=== PATIENT | male | born 1965 | race Caucasian/White ===

== ENCOUNTER 2018-12-12 10:38 | Inpatient (IN) ==
--- NOTE | 2018-12-12 11:12 | Emergency Department Note ---
Disposition Clinical Impression: ESRD (end stage renal disease) Anemia Qualifiers: Anemia type: unspecified type Qualified Code(s): D64.9 - Anemia, unspecified Disposition: Admitted As Inpatient Condition: Fair Referrals: Antonio Soriano DO [Primary Care Provider] - Forms: ED Satisfaction Letter, Work/School Release Time of Disposition: 12:01 General Adult HPI - General Chief complaint: ED General Medical Stated complaint: "needs dialysis" Time Seen by Provider: 12/12/18 10:40 - History of Present Illness Pain Scale: 0 - Related Data Allergies Allergy/AdvReac Type Severity Reaction Status Date / Time No Known Allergies Allergy Verified 12/11/18 15:20 Past Medical History - Past Medical History Medical history: Reports: cancer, renal disease Psychiatric history: Reports: no psych history - Social History Smoking Status: Never smoker Smokeless Tobacco Status: No Alcohol use: Reports: none Drug use: Reports: none Physical Exam - General General appearance: alert Course Vital Signs Temperature 98.7 F 12/12/18 10:42 Pulse Rate 87 12/12/18 10:42 Respiratory Rate 18 12/12/18 10:42 Blood Pressure 142/89 12/12/18 10:42 O2 Sat by Pulse Oximetry 99 12/12/18 10:42 Temperature 98.7 F 12/12/18 10:48 Pulse Rate 87 12/12/18 10:48 Respiratory Rate 18 12/12/18 10:48 Blood Pressure 142/89 12/12/18 10:48 O2 Sat by Pulse Oximetry 99 12/12/18 10:48 Oxygen Delivery Oxygen Delivery Room Air Medical Decision Making - Lab Data Result diagrams: 12/12/18 11:05 12/12/18 11:05 Lab Results 12/12/18 12/12/18 12/12/18 Range/Units 11:05 11:05 11:05 WBC 6.4 (4.3-11.1) K/mcL RBC 2.88 L (4.19-5.50) M/mcL Hgb 9.0 L (12.9-16.9) g/dL Hct 26.9 L (37.5-50.1) % MCV 93.4 (83.0-100.0) fL MCH 31.3 (28.0-33.3) pg MCHC 33.5 (31.6-35.5) g/dL RDW 12.3 (11.5-14.5) % Plt Count 198 (140-400) K/mcL MPV 8.9 L (9.4-12.4) fL Immature Gran % 0.3 (0-4) % Seg Neutrophils % 62.7 % Lymphocytes % 23.3 % Monocytes % 10.1 % Eosinophils % 2.8 % Basophils % 0.8 % Neutrophils # 4.0 (1.6-8.9) K/mcL Lymphocytes # 1.5 (0.6-4.6) K/mcL Monocytes # 0.6 (0.0-1.3) K/mcL Eosinophils # 0.2 (0.0-0.6) K/mcL Basophils # 0.1 (0.0-0.2) K/mcL PT 12.5 H (9.4-12.1) Seconds INR 1.1 Sodium (136-145) mEq/L Potassium (3.5-5.1) mEq/L Chloride (98-107) mEq/L Carbon Dioxide (23-29) mEq/L BUN (6-20) mg/dL Creatinine (0.70-1.30) mg/dL Est GFR ( Amer) (> 60) Est GFR (Non-Af Amer) (> 60) BUN/Creatinine Ratio (6-26) Glucose (70-105) mg/dL Calculated Osmolality (280-300) Calcium (8.6-10.3) mg/dL Urine Color Yellow (Yellow) Urine Clarity Clear (Clear) Urine pH 6.5 (5.0-8.0) pH Units Ur Specific [place] 1.019 (1.010-1.025) Urine Protein 100 H (Neg-Trace) mg/dL Urine Glucose (UA) Normal (Normal) mg/dL Urine Ketones Negative (Negative) mg/dL Urine Blood Moderate H (Negative) Urine Nitrite Negative (Negative) Urine Bilirubin Negative (Negative) Urine Urobilinogen Normal (Normal) mg/dL Ur Leukocyte Esterase Negative (Negative) 12/12/18 Range/Units 11:05 WBC (4.3-11.1) K/mcL RBC (4.19-5.50) M/mcL Hgb (12.9-16.9) g/dL Hct (37.5-50.1) % MCV (83.0-100.0) fL MCH (28.0-33.3) pg MCHC (31.6-35.5) g/dL RDW (11.5-14.5) % Plt Count (140-400) K/mcL MPV (9.4-12.4) fL Immature Gran % (0-4) % Seg Neutrophils % % Lymphocytes % % Monocytes % % Eosinophils % % Basophils % % Neutrophils # (1.6-8.9) K/mcL Lymphocytes # (0.6-4.6) K/mcL Monocytes # (0.0-1.3) K/mcL Eosinophils # (0.0-0.6) K/mcL Basophils # (0.0-0.2) K/mcL PT (9.4-12.1) Seconds INR Sodium 139 (136-145) mEq/L Potassium 4.5 (3.5-5.1) mEq/L Chloride 104 (98-107) mEq/L Carbon Dioxide 24 (23-29) mEq/L BUN 50 H (6-20) mg/dL Creatinine 10.06 H (0.70-1.30) mg/dL Est GFR ( Amer) 7 L (> 60) Est GFR (Non-Af Amer) 5 L (> 60) BUN/Creatinine Ratio 5 L (6-26) Glucose 90 (70-105) mg/dL Calculated Osmolality 301 H (280-300) Calcium 10.4 H (8.6-10.3) mg/dL Urine Color (Yellow) Urine Clarity (Clear) Urine pH (5.0-8.0) pH Units Ur Specific [place] (1.010-1.025) Urine Protein (Neg-Trace) mg/dL Urine Glucose (UA) (Normal) mg/dL Urine Ketones (Negative) mg/dL Urine Blood (Negative) Urine Nitrite (Negative) Urine Bilirubin (Negative) Urine Urobilinogen (Normal) mg/dL Ur Leukocyte Esterase (Negative) Attestation Statement - Attestation Attestation: Tristian Flores D.O., examined this patient and my medical decision-making was reviewed with the Resident Physician. I agree with the documented findings, disposition and treatment plan as described except to the extent set forth below. 53-year-old male with a history of multiple myeloma currently not on treatment preferring natural remedies at this time after previous treatment at [facility] who presents for dialysis. The patient has known renal failure but has never initiated dialysis. He was seen here yesterday and went home. He presents again today. He reports nausea at home. No vomiting or abdominal pain. No fevers. He does still make urine but less than what he used to. No other complaints. General: Alert, no acute distress HENT: Normocephalic, Atraumatic Neck: No JVD Cardiovascular: Regular rate and rhythm. No appreciable murmurs Respiratory: Lungs CTAB. No wheezing/rhonchi Abdominal: Soft, non tender. No peritoneal findings Extremities: No peripheral edema Neuro: Alert, Mentating appropriately, No focal deficits Skin: Warm, Dry Plan: EKG, basic labs, discussion with nephrology and interventional radiology with anticipated admission. Sinus rhythm with a rate of 80. Normal axis. Normal intervals. Normal R wave progression. No gross ST elevations/depressions. No acute ischemic findings. Labs with creatinine of 10. Normal potassium Case was discussed with nephrology and IR. Admit to the hospitalist.
--- NOTE | 2018-12-12 11:20 | Emergency Department Note ---
Disposition Clinical Impression: Renal failure Qualifiers: Renal failure chronicity: acute Acute renal failure type: unspecified Qualified Code(s): N17.9 - Acute kidney failure, unspecified Disposition: Admitted As Inpatient Condition: Good Referrals: Antonio Soriano DO [Primary Care Provider] - Forms: ED Satisfaction Letter, Work/School Release Time of Disposition: 12:01 General Adult HPI - General Chief complaint: ED General Medical Stated complaint: "needs dialysis" Time Seen by Provider: 12/12/18 10:40 Source: patient, family Mode of arrival: ambulatory Limitations: no limitations Nursing Notes Reviewed: Yes Vital Signs Reviewed: Yes - History of Present Illness HPI Narrative: 53-year-old male with significant past medical history of multiple myeloma leading to stage V kidney disease presenting to the emergency department with chief complaint of needing dialysis. Patient was seen here yesterday after being sent by his junior systems engineer Dr. Almanzar due to symptoms concerning for uremia and end-stage renal disease. At that time patient had laboratory analysis completed that showed a creatinine at 10 but otherwise electrolytes were within normal limits. At that time patient refused admission and decided to leave and follow-up as an outpatient with his junior systems engineer. Today patient continued to have chills, nausea and confusion and came in for admission for dialysis and placement of the catheter. Pain Scale: 0 - Related Data Allergies Allergy/AdvReac Type Severity Reaction Status Date / Time No Known Allergies Allergy Verified 12/11/18 15:20 All systems ED: reviewed and negative except as stated. Constitutional: Reports: chills. Denies: fever Eyes: Reports: as per HPI ENT ED: Reports: as per HPI Cardiovascular: Denies: chest pain Respiratory: Denies: dyspnea Gastrointestinal: Reports: nausea Genitourinary: Reports: as per HPI Musculoskeletal: Reports: as per HPI Integumentary: Reports: as per HPI Neurological: Reports: confusion Psychiatric: Reports: as per HPI Endocrine: Reports: as per HPI Hematological/Lymphatic: Reports: as per HPI Allergic/Immunologic: Reports: as per HPI Past Medical History - Past Medical History Attestation: Yes The following information was validated with the patient. Medical history: Reports: cancer, renal disease Psychiatric history: Reports: no psych history - Social History Smoking Status: Never smoker Smokeless Tobacco Status: No Alcohol use: Reports: none Drug use: Reports: none Physical Exam - General Limitations: no limitations General appearance: alert, in no apparent distress - Head Head exam: atraumatic, normocephalic, normal inspection - Eye Eye exam: Absent: scleral icterus - ENT ENT exam: mucous membranes moist - Neck Neck exam: Present: full ROM - Chest Chest inspection: Present: symmetric chest wall rise - Respiratory Respiratory exam: Present: normal lung sounds bilaterally. Absent: respiratory distress, wheezes - Cardiovascular Cardiovascular exam: Present: regular rate, normal rhythm, normal heart sounds - Abdominal Exam Abdominal exam: Present: soft, Non-Tender. Absent: distention, guarding, rebound - Extremities Exam Extremities exam: Present: full ROM - Neurological Exam Neurological exam: Present: alert - Psychiatric Psychiatric exam: Present: flat affect - Skin Skin exam: Present: warm, intact Course Course Narrative: 53-year-old male presenting needing dialysis. In the room he is alert and hemodynamically stable. Was seen yesterday but decided to leave and follow-up as an outpatient. Laboratory analysis yesterday showed elevated creatinine but electrolytes were within normal limits. I spoke with the junior systems engineer on-call Dr. Almanzar who is aware of the patient. We will obtain basic laboratory analysis along with a PT/INR for permacath placement for interventional radiology. I spoke with interventional radiology who agrees to place the patient on their juan luis edule for today. We will obtain laboratory analysis and plan to admit the patient to hospitalist. Patient and at bedside agree with this plan. - Reevaluation(s) Reevaluation #1: Patient's laboratory workup mostly unchanged from yesterday. At this time we will plan to admit the patient for further treatment of his end-stage renal disease. Patient remains alert and hemodynamically stable. Hospitalist agrees to accept the patient at this time. Vital Signs Temperature 98.7 F 12/12/18 10:42 Pulse Rate 87 12/12/18 10:42 Respiratory Rate 18 12/12/18 10:42 Blood Pressure 142/89 12/12/18 10:42 O2 Sat by Pulse Oximetry 99 12/12/18 10:42 Temperature 98.7 F 12/12/18 10:48 Pulse Rate 87 12/12/18 10:48 Respiratory Rate 18 12/12/18 10:48 Blood Pressure 142/89 12/12/18 10:48 O2 Sat by Pulse Oximetry 99 12/12/18 10:48 Oxygen Delivery Oxygen Delivery Room Air Medical Decision Making - Lab Data Result diagrams: 12/12/18 11:05 12/12/18 11:05 Lab Results 12/12/18 12/12/18 12/12/18 Range/Units 11:05 11:05 11:05 WBC 6.4 (4.3-11.1) K/mcL RBC 2.88 L (4.19-5.50) M/mcL Hgb 9.0 L (12.9-16.9) g/dL Hct 26.9 L (37.5-50.1) % MCV 93.4 (83.0-100.0) fL MCH 31.3 (28.0-33.3) pg MCHC 33.5 (31.6-35.5) g/dL RDW 12.3 (11.5-14.5) % Plt Count 198 (140-400) K/mcL MPV 8.9 L (9.4-12.4) fL Immature Gran % 0.3 (0-4) % Seg Neutrophils % 62.7 % Lymphocytes % 23.3 % Monocytes % 10.1 % Eosinophils % 2.8 % Basophils % 0.8 % Neutrophils # 4.0 (1.6-8.9) K/mcL Lymphocytes # 1.5 (0.6-4.6) K/mcL Monocytes # 0.6 (0.0-1.3) K/mcL Eosinophils # 0.2 (0.0-0.6) K/mcL Basophils # 0.1 (0.0-0.2) K/mcL PT 12.5 H (9.4-12.1) Seconds INR 1.1 Sodium (136-145) mEq/L Potassium (3.5-5.1) mEq/L Chloride (98-107) mEq/L Carbon Dioxide (23-29) mEq/L BUN (6-20) mg/dL Creatinine (0.70-1.30) mg/dL Est GFR ( Amer) (> 60) Est GFR (Non-Af Amer) (> 60) BUN/Creatinine Ratio (6-26) Glucose (70-105) mg/dL Calculated Osmolality (280-300) Calcium (8.6-10.3) mg/dL Urine Color Yellow (Yellow) Urine Clarity Clear (Clear) Urine pH 6.5 (5.0-8.0) pH Units Ur Specific [place] 1.019 (1.010-1.025) Urine Protein 100 H (Neg-Trace) mg/dL Urine Glucose (UA) Normal (Normal) mg/dL Urine Ketones Negative (Negative) mg/dL Urine Blood Moderate H (Negative) Urine Nitrite Negative (Negative) Urine Bilirubin Negative (Negative) Urine Urobilinogen Normal (Normal) mg/dL Ur Leukocyte Esterase Negative (Negative) 12/12/18 Range/Units 11:05 WBC (4.3-11.1) K/mcL RBC (4.19-5.50) M/mcL Hgb (12.9-16.9) g/dL Hct (37.5-50.1) % MCV (83.0-100.0) fL MCH (28.0-33.3) pg MCHC (31.6-35.5) g/dL RDW (11.5-14.5) % Plt Count (140-400) K/mcL MPV (9.4-12.4) fL Immature Gran % (0-4) % Seg Neutrophils % % Lymphocytes % % Monocytes % % Eosinophils % % Basophils % % Neutrophils # (1.6-8.9) K/mcL Lymphocytes # (0.6-4.6) K/mcL Monocytes # (0.0-1.3) K/mcL Eosinophils # (0.0-0.6) K/mcL Basophils # (0.0-0.2) K/mcL PT (9.4-12.1) Seconds INR Sodium 139 (136-145) mEq/L Potassium 4.5 (3.5-5.1) mEq/L Chloride 104 (98-107) mEq/L Carbon Dioxide 24 (23-29) mEq/L BUN 50 H (6-20) mg/dL Creatinine 10.06 H (0.70-1.30) mg/dL Est GFR ( Amer) 7 L (> 60) Est GFR (Non-Af Amer) 5 L (> 60) BUN/Creatinine Ratio 5 L (6-26) Glucose 90 (70-105) mg/dL Calculated Osmolality 301 H (280-300) Calcium 10.4 H (8.6-10.3) mg/dL Urine Color (Yellow) Urine Clarity (Clear) Urine pH (5.0-8.0) pH Units Ur Specific [place] (1.010-1.025) Urine Protein (Neg-Trace) mg/dL Urine Glucose (UA) (Normal) mg/dL Urine Ketones (Negative) mg/dL Urine Blood (Negative) Urine Nitrite (Negative) Urine Bilirubin (Negative) Urine Urobilinogen (Normal) mg/dL Ur Leukocyte Esterase (Negative) Attestation Statement - Attestation Attestation: Tristian Flores D.O., examined this patient and my medical decision-making was reviewed with the Resident Physician. I agree with the documented findings, disposition and treatment plan as described except to the extent set forth below.
[2018-12-12 11:37] LABS: Basophils # 0.1 K/mcL (0.0-0.2); Basophils % 0.8 %; Eosinophils # 0.2 K/mcL (0.0-0.6); Eosinophils % 2.8 %; Hematocrit 26.9 % (37.5-50.1); Immature Granulocytes % 0.3 % (0-4); Lymphocytes # 1.5 K/mcL (0.6-4.6); Lymphocytes % 23.3 %; Mean Corpuscular HGB Conc 33.5 g/dL (31.6-35.5); Mean Corpuscular Hemoglobin 31.3 pg (28.0-33.3); Mean Corpuscular Volume 93.4 fL (83.0-100.0); Mean Platelet Volume 8.9 fL (9.4-12.4); Monocytes # 0.6 K/mcL (0.0-1.3); Monocytes % 10.1 %; Platelet Count 198 K/mcL (140-400); Red Blood Count 2.88 M/mcL (4.19-5.50); Red Cell Distribution Width 12.3 % (11.5-14.5); Segmented Neutrophils % 62.7 %; White Blood Count 6.4 K/mcL (4.3-11.1)
[2018-12-12 11:47] LABS: INR 1.1; Prothrombin Time 12.5 Seconds (9.4-12.1)
[2018-12-12 11:48] LABS: Bilirubin,Urine Negative (Negative); Blood,Urine Moderate (Negative); Clarity,Urine Clear (Clear); Color,Urine Yellow (Yellow); Glucose,Urine (UA) Normal (Normal); Ketones,Urine Negative (Negative); Leukocyte Esterase,Urine Negative (Negative); Nitrite,Urine Negative (Negative); PH,Urine 6.5 pH Units (5.0-8.0); Protein,Urine 100 mg/dL (Neg-Trace); Specific Gravity,Urine 1.019 (1.010-1.025); Urobilinogen,Urine Normal (Normal)
[2018-12-12 11:49] LABS: Calcium 10.4 mg/dL (8.6-10.3); Potassium 4.5 mEq/L (3.5-5.1)
[2018-12-12 12:26] LABS: Bacteria,Urine Few per hpf (None-Few); RBC,Urine 0-3 per hpf (0-3); WBC,Urine 0-3 per hpf (0-3)
[2018-12-12 12:46] LABS: Hepatitis B Surface Antibody < 3.10 mIU/mL
[2018-12-12 12:57] LABS: Hepatitis B Surface Antigen Nonreactive (Nonreactive)
[2018-12-12] MEDS ORDERED: Ondansetron 4 MG/2 ML VIAL IVP PRN (13:22)
[2018-12-12] MEDS ORDERED: Naloxone 0.4 MG/ML INJ IVP PRN (13:22)
[2018-12-12] MEDS ORDERED: Acetaminophen 325 MG TABLET PO PRN (13:22)
[2018-12-12] MEDS ORDERED: 0.9 % Sodium Chloride 250 ML IVC PRN (13:49)
[2018-12-12] MEDS ORDERED: *HR* Heparin 10,000 UNIT/10 ML VIAL IV PRN ×2 (13:49)
[2018-12-12] MEDS ORDERED: Heparin 1,000 UNITS/500 mL 500 ML ONE (14:00)
[2018-12-12] MEDS ORDERED: 0.9 % Sodium Chloride 1,000 ML PRIME SCH (14:00)
[2018-12-12] MEDS ORDERED: 0.9 % Sodium Chloride 1,000 ML ONE (14:05)
--- NOTE | 2018-12-12 14:21 | Internal Med History&Physical ---
Date of Encounter: 12/12/18 Time of Encounter: 11:45 Internal Medicine - H&P: HPI Admitted From: Emergency Dept Plans for Post Hospital Care: Home History of present illness: Mr. Gallardo is a 53 year old male with a history of multiple myeloma that was treated at [facility]. Per patient he received a 4 Sessions of Aphoresis, and 2 sessions of chemotherapy with the last session being October 08. Persisted and now he is now on homeopathic remedies-turmeric garlic vitamin D and vitamin B supplements which has helped with his symptoms. He stated that since his bone marrow biopsy in September he has been having persistent bone pain at the right hip. His Hanna [phone] and a doctor while he had workup at [facility] he was told that he has evidence of multiple myeloma and is hips. Patient denies any trauma or fall he also denies any history of prior chronic kidney disease however was noted upon laboratory workup to have elevated serum creatinine was sent to the ED yesterday and evaluated. Patient stated that he was unable to have the HD cath placed as such he went back home but presented today to be evaluated again at ED. His was at the bedside also stated that he is being of late quite easily fatigued, has problem with concentration. Patient complains of persistent nausea and malaise. He reports intermittent episodes of fevers and chills as stated that his urine output has been diminished. He stated that at [facility] who was told at this multiple myeloma may affect his kidneys function. At the ED laboratory workup was significant for hemoglobin of 9; creatinine of 10.06. Patient denies any history of melena hematochezia and also stated that he has never had a colonoscopy. Per ED physician patient is scheduled to have a permanent HD catheter placed which hopes of starting dialysis and at the nephrology team has been consulted Past Med Surg Social Fam HX - Past Medical History Medical history: cancer, renal disease Additional medical history: Multiple Myeloma Psychiatric history: no psych history - Past Surgical History Additional surgical history: R Shoulder. R Toe - Social History Smoking Status: Never smoker Smokeless Tobacco Status: No Alcohol use: none Drug use: none Internal Medicine - H&P: Meds Allergy/AdvReac Type Severity Reaction Status Date / Time No Known Allergies Allergy Verified 12/11/18 15:20 All Systems PM: A 10-system review of systems was performed and is negative for pertinent findings except as documented above in the HPI. Review of systems: GENERAL: reports fever, chills, fatigue generalized weakness and malaise DERMATOLOGIC: Denies itch, rash or lesions HEENT: Denies headache, blurriness, diplopia or decreased visual acuity, ear pain, tinnitus, rhinorrhea, sinus tenderness or sore throat RESPIRATORY: Denies SOB, cough, hemoptysis or pleuritic chest pain CARDIOVASCULAR: Denies chest pain, LE edema, palpitation or syncope GASTRO INTESTINAL: Denies cramps, nausea/vomiting, diarrhea or constipation, melena MUSCULOSKELATAL: Denies muscle pain/weakness, joint tenderness/pain or swelling PSYCH: Denies worsening anxiety, or depression NEURO: Denies vertigo, dizziness, or ataxia GENITURINARY: Denies dysuria, nocturia or urinary incontinence - Constitutional Vitals: Temp Pulse Resp BP Pulse Ox 98.7 F 87 19 146/94 99 12/12/18 10:48 12/12/18 10:48 12/12/18 13:42 12/12/18 13:42 12/12/18 10:48 Exam: GENERAL: NAD, A&O x3, pleasant and conversant at his bedside SKIN: [place] warm dry No skin lesions or rashes, non-jaundiced EYES: EOMI, PERRLA, no sclera icterus HENT: Head atraumatic, no facial asymmetry, frontal and maxillary sinus non- tender, normal hearing, oropharynx and mucosa moist and without any exudates NECK: No cervical lymphadenopathy, trachea midline, thyroid is palpable does not appear enlarged LUNGS: vesicular breath sounds, clear to auscultation, no wheeze, rhonchi, rales or crackles. Non labored respirations HEART: Normal rate and rhythm, no murmurs or rubs ABDOMEN: soft, non-tender, non-distended, bowel sounds x 4 normoactive EXTRMITIES: No LE asymmetry, No LE edema, pedal pulses 1+ and radial pulses 2 + and equal bilaterally NEURO: Speech and comprehension appears intact. PSYCH: Cooperative, non- anxious or irritable, mood seems depressed and affect is flat Internal Med - H&P Results - Labs CBC & Chem 7: 12/12/18 11:05 12/12/18 11:05 Labs: Short CBC 12/12/18 Range/Units 11:05 WBC 6.4 (4.3-11.1) K/mcL Hgb 9.0 L (12.9-16.9) g/dL Hct 26.9 L (37.5-50.1) % Plt Count 198 (140-400) K/mcL Neutrophils # 4.0 (1.6-8.9) K/mcL BMP 12/12/18 11:05 Sodium 139 Potassium 4.5 Chloride 104 Carbon Dioxide 24 BUN 50 H Creatinine 10.06 H Glucose 90 Calcium 10.4 H Urine 12/12/18 Range/Units 11:05 Urine Color Yellow (Yellow) Urine Clarity Clear (Clear) Urine pH 6.5 (5.0-8.0) pH Units Ur Specific [place] 1.019 (1.010-1.025) Urine Protein 100 H (Neg-Trace) mg/dL Urine Glucose (UA) Normal (Normal) mg/dL - Assessment and Plan (1) Renal failure Current Visit: Yes Status: Acute Assessment and plan: Surrounding etiology for his acute renal failure remains unclear although patient seems to attribute to his history of multiple myeloma, he presents with serum creatinine of 10.6 appears patient's serum creatinine has steadily been on the rise dating back to September 2018 last normal serum creatinine was 02/01/2017. Per ED physician IR have been consulted for placement of a permanent HD cath, the case has already been discussed with the cellulose insulation helper for possible emergent dialysis. With the exception of weakness malaise and nausea patient is otherwis e unremarkable he also does not appear to have an associated electrolyte abnormalities potassium is normal we will check phosphorus in the morning. place on a renal diet and monitor his electrolytes. Appreciate nephrology input Qualifiers: Renal failure chronicity: acute Acute renal failure type: unspecified Qualified Code(s): N17.9 - Acute kidney failure, unspecified (2) Anemia Current Visit: Yes Status: Acute Assessment and plan: Patient with normocytic type anemia he also denies ever undergoing colonoscopy he denies melena or hematochezia he is urinalysis was positive for blood however he denies gross hematuria last Normal hemoglobin was in September 2018 with hemoglobin of 13.1. This could also be in relation to his history of myeloma however would work up patient for other causes of anemia to rule out other treatable causes. Discussed with patient that if he has positive guaiac he might consider colonoscopy in the near future which he appears reluctant to will defer to his primary care physician Qualifiers: Anemia type: unspecified type Qualified Code(s): D64.9 - Anemia, unspecified (3) Microscopic hematuria Current Visit: Yes Status: Acute Assessment and plan: Patient denies gross hematuria UA was positive for moderate blood likely microsc opic will clinically correlate (4) History of multiple myeloma Current Visit: Yes Status: Acute Assessment and plan: Patient stated that he received 4 sessions of Aphoresis and 2 sessions of chemotherapy with the last sessions being October [id number] at [facility]. He stated he is now on homeopathic remedies which he attributes his relief too. He is complaining of right hip pain status post a bone marrow biopsy since September although he denies any swelling erythema and warmth physical exam with range of motion was unremarkable and did not elicit pain (5) Hypercalcemia Current Visit: Yes Status: Acute Assessment and plan: His calcium today is 10.4 no albumin on file to correlate his true calcium level, will check LFTs am he does admit to vitamin D supplementation but could not correlate the amount will also check a vitamin D level clinically correlate (6) DVT prophylaxis Current Visit: Yes Status: Acute Assessment and plan: Heparin subcutaneous - Time Spent With Patient Total time spent is greater than 50% in coordination of care (as documented) at patient's floor/unit and/or counseling patient:
[2018-12-12] MEDS ORDERED: *HR* Midazolam HCl 2 MG/2 ML VIAL IVP ONE (14:45)
[2018-12-12] MEDS ORDERED: CeFAZolin Premix DUPLEX 2,000 MG/50 ML BAG IVPB ONE (14:45)
[2018-12-12] MEDS ORDERED: *HR* FentaNYL (PF) 100 MCG/2 ML VIAL IVP ONE (14:45)
--- NOTE | 2018-12-12 14:46 | Pre-Sedation Evaluation ---
Pre-sedation evaluation - Pre-sedation checklist Date of procedure: 12/12/18 Procedure: permacath Recent Vitals: Last Vital Signs Temp 98.7 F 12/12/18 10:48 Pulse 87 12/12/18 10:48 Resp 19 12/12/18 13:42 BP 146/94 12/12/18 13:42 Pulse Ox 99 12/12/18 10:48 H&P (including ROS) documented in medical record: Yes Previous reaction to sedatives/anesthetics: No Dietary Status: No solid food in preceding 4 hrs and no liquid in preceding 2 hrs Dentition: No loose teeth or bridges Possible difficult airway: No ASA Classification *see protocol: CLASS III-Severe systemic disease Plan of Care: Pt appropriate candidate for procedure/moderate/conscious sedation, Risks/benefits of procedure/sedation discussed w/ patient/family
[2018-12-12] MEDS ORDERED: 0.9 % Sodium Chloride 500 ML ONE (14:49)
[2018-12-12] MEDS ORDERED: *HR* FentaNYL (PF) 100 MCG/2 ML VIAL ONE (14:55)
[2018-12-12] MEDS ORDERED: *HR* Midazolam HCl 2 MG/2 ML VIAL ONE (14:55)
--- NOTE | 2018-12-12 15:18 | IR Procedure Note ---
Date of procedure: 12/12/18 Consent Obtained: Verbal consent, Written consent Timeout: Correct patient and procedure verified, Correct site verified, Time out performed, Skin prep completed Local anesthetic: Lidocaine 1% Was there an assistant unit forester present: No Estimated blood loss (cc): 3 Complications: None; Tolerated procedure well Indications: Renal failure Procedure Performed: Tunneled HD catheter placement Site/Technique: Tunneled right IJ HD catheter placed in VIR Results/Findings (any specimens removed): Catheter in good position Post Procedure Treatment Plan: OK to use Specimen: none
[2018-12-12 17:21] LABS: Hematocrit 24.4 % (37.5-50.1); Hemoglobin 8.5 g/dL (12.9-16.9)
--- NOTE | 2018-12-12 20:35 | Nephrology Consult Note ---
<MeganKat boo Flash - Last Filed: 12/12/18 20:32> Date of Encounter: 12/12/18 Time of Encounter: 15:35 Assessment and Plan (1) Acute kidney injury superimposed on CKD Status: Acute Pt's GFR started to decline in September of this year was 27. GFR is 5 today. HD completed, Permcath placed today (12/12/18). Avoid nephrotoxins and renal dose. Consider Heme/onc consult. patient does not wish to go back to [facility] for treatment. Strict I/O Plan for HD tomorrow. (2) Anemia Status: Acute Hgb is 8.5, no obvious signs of bleeding. Iron profile already ordered for in the am. Qualifiers: Anemia type: unspecified type Qualified Code(s): D64.9 - Anemia, unspecified (3) History of multiple myeloma Status: Acute Consider Heme/onc consult. (4) Hypercalcemia Status: Acute 10.4, Consider Ionized Calcium in am. History of Present Illness - Reason for Consult Consult date: 12/12/18 Acute Kidney Injury, Chronic Kidney Disease Requesting physician: Kristie Mcdowell - Chief Complaint HD - History of Present Illness Mr. Gallardo is a 53 year old male who presented to ED under advisement of his rn telephonic Dr. Almanzar. His GFR has been checked several time in November of this year and has remained around 5. PMH:multiple myeloma and CKD. Patient was treated at [facility] with 4 sessions of Aphoresis and 2 sessions of chemo in September of this year. This is when the GFR started to decline and noted to be 27 at that point. The patient states that chemo did not sit well with him "physically and spiritually" so they pursued the holistic route of treatment in [place] in October, where he was told his multiple myeloma was "cured". He saw Dr. Almanzar in the office and she urged him to decide between PD and HD. He presented to ED yesterday, but when home when his HD cath could not be placed during the night. He returned this morning for HD. Admits to fever, chills, fatigue, shortness of breath, nausea. Denies emesis and diarrhea. Admits to feeling confused and has become easily distracted. IR placed permcath and HD was completed today. He lives at home with , Denies etoh, tobacco use, or illicit drug use. Past Med Surg Social Fam HX - Past Medical History Medical history: cancer, renal disease Additional medical history: Multiple Myeloma Psychiatric history: no psych history - Past Surgical History Additional surgical history: R Shoulder. R Toe - Social History Smoking Status: Never smoker Smokeless Tobacco Status: No Alcohol use: none Drug use: none Medications and Allergies No Known Home Drugs 12/12/18 [History] Allergy/AdvReac Type Severity Reaction Status Date / Time No Known Allergies Allergy Verified 12/12/18 22:28 Review of Systems All Systems review (narrative): The remainder of the systems are negative. Constitutional: chills, fatigue, fever(s) Cardiovascular: no chest pain, no dyspnea, no edema Respiratory: no hemoptysis Gastrointestinal: nausea, no diarrhea, no vomiting Genitourinary Male: no hematuria, no urinary frequency, no urinary hesitancy, no urinary urgency Exam - Vital Signs Vital signs: Initial Vital Signs Temp Pulse Resp BP Pulse Ox 98.7 F 87 18 142/89 99 12/12/18 10:42 12/12/18 10:42 12/12/18 10:42 12/12/18 10:42 12/12/18 10:42 Vital Signs - Last 8 Hours Temp Pulse Resp BP Pulse Ox 12/12/18 19:18 98.3 F 81 17 145/70 98 12/12/18 17:55 98.7 F 16 144/86 12/12/18 17:40 155/93 12/12/18 17:25 148/90 12/12/18 17:10 163/88 12/12/18 16:55 168/94 12/12/18 16:40 148/90 12/12/18 16:25 161/92 12/12/18 16:10 155/93 12/12/18 15:55 161/93 12/12/18 15:40 97.8 F 15 146/86 12/12/18 14:59 84 16 140/84 100 12/12/18 13:42 19 146/94 Intake and Output 12/12/18 12/12/18 12/12/18 07:59 15:59 23:59 Intake Total 500 / 500 Output Total 1500 / 1500 Balance 500 / -1000 -1500 / -1000 Intake: Oral 0 / 0 Intake, Rinseback and Flushes 500 / 500 Output: Urine 0 / 0 Total Dialysis (HD) Output 1500 / 1500 Other: Weight 77.111 kg Hemodialysis Net Fluid Removed 187 1000 (mL) Patient Weight 12/12/18 23:59 Weight 77.111 kg - General Appearance General appearance: well-developed, well-nourished EENT: ATNC, hearing intact, vision intact Neck: supple Respiratory: clear Cardiology: no edema, normal S1, normal S2 - Dialysis Access Dialysis Vascular Access: Venous Catheter (DRSG C/D/I) Gastrointestinal: normoactive bowel sounds, no tenderness, no guarding Integumentary: no rash, warm and dry Neurologic: alert and oriented x3 Musculoskeletal: no deformities, no erythema Psychiatric: mood/affect appropriate, cooperative Results - Lab Results 12/12/18 14:30 12/12/18 11:05 Most recent lab results 12/12/18 11:05 Calcium 10.4 H Consult Discharge Plan - Plan Instructions: Acute Kidney Injury (DC), Anemia (GEN) Additional Instructions: [facility] in [place] on [address] @ [address] - arrive 30 minutes for first treatment on Sunday12/18/18 Referrals: Antonio Soriano DO [Primary Care Provider] - (Patient will call for an appointment per Office) <Alejandro Valera - Last Filed: 12/23/18 02:59> Date of Encounter: 12/12/18 Assessment and Plan (1) Acute kidney injury superimposed on CKD Status: Acute (2) Anemia Status: Acute Qualifiers: Anemia type: unspecified type Qualified Code(s): D64.9 - Anemia, unspecified (3) History of multiple myeloma Status: Acute (4) Hypercalcemia Status: Acute Exam - Vital Signs Vital signs: Initial Vital Signs Temp Pulse Resp BP Pulse Ox 98.7 F 87 18 142/89 99 12/12/18 10:42 12/12/18 10:42 12/12/18 10:42 12/12/18 10:42 12/12/18 10:42 Results - Lab Results 12/16/18 05:39 12/16/18 05:39 - Attending Attestation I examined this patient and my medical decision-making was reviewed with the Resident Physician/JUNIOR ART DIRECTOR. I agree with the documented findings, disposition and treatment plan as described except to the extent set forth below. 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 Pt seen and examined on HD today after receiving permcath, doing fairly well with at bedside. On exam: Gen: chronic ill appearing, lethargic, NAD, lungs clear, heart S1s2, abd soft NTND, Ext no LE edema and neuro AAOx3. Continue HD today for 2hrs, plan a second and third HD s essions after this one. Will also arrange chair time for outpatient HD. Pt agreed to speak to oncology regarding the current status of MM which is NOT in remission despite what he was apparently told in [place].
[2018-12-12 20:40] LABS: Hematocrit 24.2 % (37.5-50.1); Hemoglobin 8.5 g/dL (12.9-16.9)
[2018-12-12] MEDS: *HR* Heparin 5,000 UNIT/ML VIAL SQ SCH ×2 (21:45→23:29)
--- NOTE | 2018-12-12 22:00 | Electrocardiograph Report ---
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
[2018-12-13 04:16] LABS: Basophils % 0.6 %; Eosinophils # 0.1 K/mcL (0.0-0.6); Eosinophils % 1.7 %; Hemoglobin 8.6 g/dL (12.9-16.9); Immature Granulocytes % 0.1 % (0-4); Lymphocytes # 1.3 K/mcL (0.6-4.6); Lymphocytes % 18.4 %; Mean Corpuscular HGB Conc 34.4 g/dL (31.6-35.5); Mean Corpuscular Hemoglobin 31.5 pg (28.0-33.3); Mean Corpuscular Volume 91.6 fL (83.0-100.0); Mean Platelet Volume 8.9 fL (9.4-12.4); Monocytes # 0.8 K/mcL (0.0-1.3); Monocytes % 11.9 %; Neutrophils # 4.6 K/mcL (1.6-8.9); Platelet Count 170 K/mcL (140-400); Red Blood Count 2.73 M/mcL (4.19-5.50); Red Cell Distribution Width 12.2 % (11.5-14.5); Segmented Neutrophils % 67.3 %; White Blood Count 6.9 K/mcL (4.3-11.1)
[2018-12-13 04:32] LABS: Calcium 10.3 mg/dL (8.6-10.3); Phosphorous 6.3 mg/dL (2.7-4.5); Potassium 3.8 mEq/L (3.5-5.1)
[2018-12-13 04:35] LABS: % Iron Saturation 31 % (20-55); Albumin 4.6 g/dL (3.5-5.7); Albumin/Globulin Ratio 2.1 (1.1-2.2); Bilirubin,Direct 0.1 mg/dL (0.0-0.2); Bilirubin,Indirect 0.3 mg/dL (0.0-1.2); Bilirubin,Total 0.4 mg/dL (0.3-1.0); Globulin 2.2 g/dL (2.4-3.5); Iron 92 mcg/dL (65-175); Total Protein 6.8 g/dL (6.4-8.9); Transferrin 211 mg/dL (203-362)
[2018-12-13 04:49] LABS: Ferritin 918 ng/mL (20-250)
[2018-12-13 04:55] LABS: Folate 6.6 ng/mL (3.0-16.0)
--- NOTE | 2018-12-13 07:37 | Internal Med Progress Note ---
Hospitalist Progress Note - Encounter Date of Encounter: 12/13/18 Time of Encounter: 09:00 - Subjective Interval History: No acute events overnight - Exam Vitals: Temp Pulse Resp BP Pulse Ox 98.2 F 90 18 149/76 98 12/13/18 06:54 12/13/18 06:54 12/13/18 06:54 12/13/18 06:54 12/13/18 06:54 Exam: GENERAL: NAD, A&O x3, pleasant and conversant at his bedside SKIN: [place] warm dry No skin lesions or rashes, non-jaundiced EYES: EOMI, PERRLA, no sclera icterus HENT: Head atraumatic, no facial asymmetry, frontal and maxillary sinus non- tender, normal hearing, oropharynx and mucosa moist and without any exudates NECK: No cervical lymphadenopathy, trachea midline, thyroid is palpable does not appear enlarged LUNGS: vesicular breath sounds, clear to auscultation, no wheeze, rhonchi, rales or crackles. Non labored respirations HEART: Normal rate and rhythm, no murmurs or rubs ABDOMEN: soft, non-tender, non-distended, bowel sounds x 4 normoactive EXTRMITIES: No LE asymmetry, No LE edema, pedal pulses 1+ and radial pulses 2 + and equal bilaterally NEURO: Speech and comprehension appears intact. PSYCH: Cooperative, non- anxious or irritable, mood seems depressed and affect is flat - Assessment and Plan (1) Renal failure Current Visit: Yes Status: Acute Assessment and Plan: Pt has CKD stage 4 progressing to acute renal failure and possible ESRD. GFR in September was 27 Possibly secondary to complications from incomplete treatment of multiple myelo ma Permacath placed yesterday and patient was started on dialysis. Renal following and will assess need for extermination inspector dialysis (2) Anemia Current Visit: Yes Status: Acute Assessment and Plan: Patient with normocytic type anemia likely secondary to mulitple myeloma complicated by kidney disease Monitor hemoglobin. transfuse as indicated (3) History of multiple myeloma Current Visit: Yes Status: Acute Assessment and Plan: Patient stated that he received 4 sessions of Aphoresis and 2 sessions of chemotherapy with the last sessions being October 082018 at [facility]. He stated he is now on homeopathic remedies which he attributes his relief too. He declines further chemotherapy and wants to know the status of his multiple myeloma Oncology consulted and appreciate recs. follow up lab work (4) Hypercalcemia Current Visit: Yes Status: Acute Assessment and Plan: Likely secondary to multiple myeloma Monitor daily BMP and treat as indicated. Calcium was 10.3 today (5) DVT prophylaxis Current Visit: Yes Status: Acute Assessment and Plan: Heparin subcutaneous - Time Spent with Patient Total time spent is greater than 50% in coordination of care (as documented) at patient's floor/unit and/or counseling patient: Internal Medicine: Result - Labs CBC & Chem 7: 12/13/18 03:32 12/13/18 03:32 Labs: Short CBC 12/12/18 12/12/18 12/12/18 Range/Units 11:05 14:30 20:04 WBC 6.4 (4.3-11.1) K/mcL Hgb 9.0 L 8.5 L 8.5 L (12.9-16.9) g/dL Hct 26.9 L 24.4 L 24.2 L (37.5-50.1) % Plt Count 198 (140-400) K/mcL Neutrophils # 4.0 (1.6-8.9) K/mcL 12/13/18 Range/Units 03:32 WBC 6.9 (4.3-11.1) K/mcL Hgb 8.6 L (12.9-16.9) g/dL Hct 25.0 L (37.5-50.1) % Plt Count 170 (140-400) K/mcL Neutrophils # 4.6 (1.6-8.9) K/mcL BMP 12/12/18 12/13/18 11:05 03:32 Sodium 139 140 Potassium 4.5 3.8 Chloride 104 103 Carbon Dioxide 24 24 BUN 50 H 41 H Creatinine 10.06 H 8.22 H Glucose 90 93 Calcium 10.4 H 10.3 Liver Function 12/13/18 Range/Units 03:32 Total Bilirubin 0.4 (0.3-1.0) mg/dL Direct Bilirubin 0.1 (0.0-0.2) mg/dL AST 8 L (13-39) Units/L ALT 7 (7-52) Units/L Alkaline Phosphatase 28 L (34-104) Units/L Albumin 4.6 (3.5-5.7) g/dL Urine 12/12/18 Range/Units 11:05 Urine Color Yellow (Yellow) Urine Clarity Clear (Clear) Urine pH 6.5 (5.0-8.0) pH Units Ur Specific [place] 1.019 (1.010-1.025) Urine Protein 100 H (Neg-Trace) mg/dL Urine Glucose (UA) Normal (Normal) mg/dL - ABG Interpretation ABG results: PT/INR, D-dimer PT 12.5 Seconds (9.4-12.1) H 12/12/18 11:05 - Impressions Impressions Guidance Ultrasound 12/12/18 15:25 IMPRESSION: Ultrasound and fluoroscopic guided placement of a tunneled hemodialysis catheter, which is ready for use. D/ / Leonel Díaz MD / Leonel Díaz MD Interpreting Provider: Leonel Díaz MD Insertion Tunneled Catheter 12/12/18 15:25 IMPRESSION: Ultrasound and fluoroscopic guided placement of a tunneled hemodialysis catheter, which is ready for use. D/ / Leonel Díaz MD / Leonel Díaz MD Interpreting Provider: Leonel Díaz MD Consult Discharge Plan - Plan Referrals: Antonio Soriano DO [Primary Care Provider] - (1) Renal failure Qualifiers: Renal failure chronicity: acute Acute renal failure type: unspecified Qualified Code(s): N17.9 - Acute kidney failure, unspecified (2) Anemia Qualifiers: Anemia type: unspecified type Qualified Code(s): D64.9 - Anemia, unspecified
[2018-12-13 08:02] LABS: VBG Ionized Calcium 1.27 mmol/L (1.15-1.35)
[2018-12-13] MEDS ORDERED: 0.9 % Sodium Chloride 250 ML IVC PRN (08:19)
[2018-12-13] MEDS ORDERED: *HR* Heparin 10,000 UNIT/10 ML VIAL IV PRN ×2 (08:19)
--- NOTE | 2018-12-13 12:56 | Nephrology Progress Note ---
Date of Encounter: 12/13/18 Time of Encounter: 11:58 - Assessment and Plan (1) Acute kidney injury superimposed on CKD Current Visit: Yes Status: Acute I reviewed the labs, vital signs, progress notes, imaging, outside progress notes, as well as the handoff information my colleague Dr. Almanzar: This patient required a high degree of evaluation management of medical decision-making, and I recommend further dialysis today. He will likely need a third treatment tomorrow. Please continue to help arrange an outpatient dialysis chair time. I reviewed his labs, vitals, med list, progress notes (including Dr. Almanzar's clinic notes earlier this year with the pt's GFR was also 6) and imaging. He has a Permacath; recommend outpt HD chair time. I will defer his MM treatment to Hem/Onc and provide dialysis in the meantime. I counseled and encouraged him to see full MM care. (2) Anemia Current Visit: Yes Status: Acute Qualifiers: Anemia type: unspecified type Qualified Code(s): D64.9 - Anemia, unspecified (3) History of multiple myeloma Current Visit: Yes Status: Acute (4) Hypercalcemia Current Visit: Yes Status: Acute Subjective Principal diagnosis: Renal failure from MM Interval history: Pt was s/e and seen during HD. He did not affirm having active N/V/D or cramping during dialysis. Objective - Vital Signs Vital signs: Vital Signs Temp Pulse Resp BP Pulse Ox 12/13/18 11:40 146/95 12/13/18 11:25 159/90 12/13/18 11:10 132/82 12/13/18 10:55 133/89 12/13/18 10:40 135/86 12/13/18 10:25 131/90 12/13/18 10:10 126/87 12/13/18 09:55 139/86 12/13/18 09:40 97.9 F 18 142/88 12/13/18 06:54 98.2 F 90 18 149/76 98 12/13/18 03:40 98.2 F 89 17 120/75 96 12/13/18 00:33 98.2 F 91 17 140/80 97 12/12/18 19:18 98.3 F 81 17 145/70 98 12/12/18 17:55 98.7 F 16 144/86 12/12/18 17:40 155/93 12/12/18 17:25 148/90 12/12/18 17:10 163/88 12/12/18 16:55 168/94 12/12/18 16:40 148/90 12/12/18 16:25 161/92 12/12/18 16:10 155/93 12/12/18 15:55 161/93 12/12/18 15:40 97.8 F 15 146/86 12/12/18 14:59 84 16 140/84 100 12/12/18 13:42 19 146/94 Intake and Output 12/12/18 12/13/18 12/13/18 23:59 07:59 15:59 Intake Total 600 / 600 Output Total 1500 / 1500 Balance -1500 / -1000 600 / 600 Intake: Oral 0 / 0 Intake, Rinseback and Flushes 600 / 600 Output: Urine 0 / 0 Total Dialysis (HD) Output 1500 / 1500 Other: Hemodialysis Net Fluid Removed 1000 1004 (mL) - General Appearance General appearance: Present: well-developed (tall and thin), well-nourished, appears started age EENT: Present: ATNC, PERRL, mucous membranes moist Neck: Present: no JVD, no carotid bruit Respiratory: Present: clear Cardiology: Present: no murmurs, no edema, regular rate, regular rhythm, normal S1, normal S2 Dialysis Vascular Access: Venous Catheter (Right sided tunneled HD catheter without exit site erythema and Tegaderm in place) Gastrointestinal: Present: normoactive bowel sounds, no tenderness, no guarding Integumentary: Present: no rash, warm and dry Neurologic: Present: no focal deficit, no asterixis, alert and oriented x3 Musculoskeletal: Present: no deformities, no erythema, no cyanosis Psychiatric: Present: mood/affect appropriate, cooperative - Lab 12/13/18 03:32 12/13/18 03:32 Most recent lab results 12/13/18 03:32 Calcium 10.3 Phosphorus 6.3 H - Imaging Kidney/bladder ultrasound: report reviewed (Mar: The right kidney measures 12.0 cm in length and the left kidney measures 13.2) Consult Discharge Plan - Plan Referrals: ColopyAntonio DO [Primary Care Provider] -
--- NOTE | 2018-12-13 13:13 | Oncology Inp Consult Note ---
Date of Encounter: 12/13/18 Time of Encounter: 08:00 Assessment and Plan (1) Myeloma Status: Acute Assessment and plan: Patient with multiple myeloma, recent diagnosis in September 2018, incompletely treated with Cytoxan and Velcade, dexamethasone, possibly 2 cycles with decline in kappa light chains, with kidney disease, related to myeloma, requiring dialysis support. Patient had discontinued treatment as he did not tolerate chemotherapy? Cytoxan/Velcade, wanted to pursue holistic approach, is now returning back to pursue treatment/dialysis. Initial bone marrow biopsy had shown 68% plasma cells, with slight decline in kappa light chains from repeat lab work. Patient wants proof that he still has myeloma. He does not want to have a repeat bone marrow aspiration biopsy. We will discuss lab works later today, further treatment with the above. --[facility] labs were reviewed with patient by Yane Morales NP, he has responded to RX and kappa light chains have continued to decrease, but not in remission. Patient was offered continued treatment with velcade, without chemo (cytoxan), daratumumab to be added later. We provided writtent information for patient to review the side effects if acceptable. WE went over other supportive treatments for hypercalecemia, anemia related to his disease. He still has not decided or consented on active treatment for myeloma, to start him on any today. Clinic contact information provided to patient, if he wishes to pursue treatment for myeloma and if discahrged home over the weekend. Qualifiers: Multiple myeloma remission status: not in remission Qualified Code(s): C90.00 - Multiple myeloma not having achieved remission - Data of Consult Requesting Physician: Radha Segura Primary Care Provider: Antonio Soriano - Consult Narrative Reason for consult: Myeloma History of present illness: 53-year-old male with medical history significant for recent diagnosis of multiple myeloma, anemia, hypercalcemia, who underwent a bone marrow aspiration biopsy when he presented with the above, acute kidney injury, kappa free light chains and serum were 14,000 skeletal survey showed innumerable lytic lesions, patient underwent apheresis, bone marrow biopsy showed 68% plasma cells, cytogenetics- 46,XY,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 Patient underwent treatment with Cytoxan, dexamethasone, Velcade, restaging labs on 10/08/18 compared to showed a decline in serum kappa free light chains up to 8000 Lambda ratio around 4000. Per [facility] records patient wanted to discontinue therapy and pursue holistic/alternative therapies and quit active treatment for myeloma despite counseling. Hematology consulted for management of myeloma, patient hospitalized to [facility] with kidney failure requiring dialysis. He has tried holistic treatment in [place] in the interim. HE does not want to go to [facility] for Rx due to multiple reasons. Past Med Surg Social Fam HX - Past Medical History Medical history: cancer, renal disease Additional medical history: Multiple Myeloma Psychiatric history: no psych history - Past Surgical History Additional surgical history: R Shoulder. R Toe - Social History Smoking Status: Never smoker Smokeless Tobacco Status: No Alcohol use: none Drug use: none Medications and Allergies No Known Home Drugs 12/12/18 [History] Allergy/AdvReac Type Severity Reaction Status Date / Time No Known Allergies Allergy Verified 12/12/18 22:28 Constitutional: Present: anorexia, fever(s) Ears: Present: as per HPI Nose, mouth and throat: Present: as per HPI Additional comments: denied cp Respiratory: Present: cough, dyspnea Gastrointestinal: Present: diarrhea Additional comments: no dysuria, incontinence Additional comments: joint pain, no neuropathy Additional comments: none Additional comments: episode of confusion Additional comments: no depression/anxiety Additional comments: no dm, thyroid disorder Additional comments: fatigue due to anemia Oncology - Exam - Constitutional General appearance: no acute distress - Head Head exam: Present: atraumatic, normal inspection - Eye Eye exam: Present: sclera anicteric - ENT ENT exam: Present: mucous membranes moist - Neck Neck exam: Present: full ROM - Respiratory Respiratory exam: Present: CTAB Additional comments: rt upper chest catheter - Cardiovascular Cardiovascular exam: Present: +S1, +S2 - GI/Abdominal GI/Abdominal exam: Present: normal bowel sounds, soft Additional comments: non tender - Extremities Exam Additional comments: no edema - Back Exam Back exam: Present: normal inspection Additional comments: no tenderness - Neurological Exam Neurological exam: Present: alert, CN II-XII intact, oriented X3, no focal deficits - Psychiatric Psychiatric exam: Present: normal mood - Skin Skin exam: Present: dry, warm Consult Discharge Plan - Plan Referrals: Colopy,Antonio Borden DO [Primary Care Provider] - Inpatient Charges Provider: Dr. Santos Jiang Consult - Inpatient: [id number]
--- NOTE | 2018-12-13 14:01 | Electrocardiograph Report ---
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
[2018-12-13] MEDS: *HR* Heparin 5,000 UNIT/ML VIAL SQ SCH ×2 (14:57→20:19)
[2018-12-13] MEDS ORDERED: *HR* Metoprolol 5 MG/5 ML VIAL IVP ONE (15:17)
[2018-12-14] MEDS: *HR* Heparin 5,000 UNIT/ML VIAL SQ SCH ×2 (04:08→14:56)
[2018-12-14] MEDS ORDERED: 0.9 % Sodium Chloride 250 ML IVC PRN (07:03)
[2018-12-14 07:05] LABS: Basophils % 0.5 %; Eosinophils # 0.1 K/mcL (0.0-0.6); Hematocrit 24.9 % (37.5-50.1); Hemoglobin 8.6 g/dL (12.9-16.9); Immature Granulocytes % 0.3 % (0-4); Lymphocytes # 1.7 K/mcL (0.6-4.6); Lymphocytes % 26.8 %; Mean Corpuscular HGB Conc 34.5 g/dL (31.6-35.5); Mean Corpuscular Hemoglobin 31.7 pg (28.0-33.3); Mean Corpuscular Volume 91.9 fL (83.0-100.0); Mean Platelet Volume 8.6 fL (9.4-12.4); Monocytes # 0.8 K/mcL (0.0-1.3); Monocytes % 12.2 %; Neutrophils # 3.8 K/mcL (1.6-8.9); Platelet Count 155 K/mcL (140-400); Red Blood Count 2.71 M/mcL (4.19-5.50); Red Cell Distribution Width 12.2 % (11.5-14.5); Segmented Neutrophils % 58.2 %; White Blood Count 6.5 K/mcL (4.3-11.1)
[2018-12-14 07:20] LABS: Calcium 10.5 mg/dL (8.6-10.3); Potassium 3.8 mEq/L (3.5-5.1)
--- NOTE | 2018-12-14 07:36 | Internal Med Progress Note ---
Hospitalist Progress Note - Encounter Date of Encounter: 12/14/18 Time of Encounter: 08:00 - Subjective Interval History: No acute events overnight - Exam Vitals: Temp Pulse Resp BP Pulse Ox 98.8 F 98 16 122/81 98 12/14/18 03:57 12/14/18 03:57 12/14/18 03:57 12/14/18 03:57 12/14/18 03:57 Exam: GENERAL: NAD, A&O x3, pleasant and conversant at his bedside SKIN: [place] warm dry No skin lesions or rashes, non-jaundiced EYES: EOMI, PERRLA, no sclera icterus HENT: Head atraumatic, no facial asymmetry, frontal and maxillary sinus non- tender, normal hearing, oropharynx and mucosa moist and without any exudates NECK: No cervical lymphadenopathy, trachea midline, thyroid is palpable does not appear enlarged LUNGS: vesicular breath sounds, clear to auscultation, no wheeze, rhonchi, rales or crackles. Non labored respirations HEART: Normal rate and rhythm, no murmurs or rubs ABDOMEN: soft, non-tender, non-distended, bowel sounds x 4 normoactive EXTRMITIES: No LE asymmetry, No LE edema, pedal pulses 1+ and radial pulses 2 + and equal bilaterally NEURO: Speech and comprehension appears intact. PSYCH: Cooperative, non- anxious or irritable, mood seems depressed and affect is flat - Assessment and Plan (1) Renal failure Current Visit: Yes Status: Acute Assessment and Plan: Pt has CKD stage 4 progressing to acute renal failure and possible ESRD. GFR in September was 27 Possibly secondary to complications from incomplete treatment of multiple myelo ma Permacath placed 12/13 and patient was started on dialysis. Patient will undergo another session of dialysis today Awaiting setup of outpatient dialysis chair for discharge planning (2) Anemia Current Visit: Yes Status: Acute Assessment and Plan: Patient with normocytic type anemia likely secondary to mulitple myeloma complicated by kidney disease Monitor hemoglobin. transfuse as indicated (3) History of multiple myeloma Current Visit: Yes Status: Acute Assessment and Plan: Patient stated that he received 4 sessions of Aphoresis and 2 sessions of chemotherapy with the last sessions being October 082018 at [facility]. He stated he is now on homeopathic remedies which he attributes his relief too. He declines further chemotherapy and wants to know the status of his multiple myeloma Oncology consulted and appreciate recs. follow up lab work (4) Hypercalcemia Current Visit: Yes Status: Acute Assessment and Plan: Likely secondary to multiple myeloma Monitor daily BMP and treat as indicated. Calcium was 10.3 today (5) DVT prophylaxis Current Visit: Yes Status: Acute Assessment and Plan: Heparin subcutaneous - Time Spent with Patient Total time spent is greater than 50% in coordination of care (as documented) at patient's floor/unit and/or counseling patient: Internal Medicine: Result - Labs CBC & Chem 7: 12/14/18 06:48 12/14/18 06:48 Labs: Short CBC 12/14/18 Range/Units 06:48 WBC 6.5 (4.3-11.1) K/mcL Hgb 8.6 L (12.9-16.9) g/dL Hct 24.9 L (37.5-50.1) % Plt Count 155 (140-400) K/mcL Neutrophils # 3.8 (1.6-8.9) K/mcL BMP 12/14/18 06:48 Sodium 138 Potassium 3.8 Chloride 99 Carbon Dioxide 30 H BUN 24 H Creatinine 6.65 H Glucose 102 Calcium 10.5 H - ABG Interpretation ABG results: PT/INR, D-dimer PT 12.5 Seconds (9.4-12.1) H 12/12/18 11:05 Consult Discharge Plan - Plan Referrals: Antonio Soriano DO [Primary Care Provider] - (1) Renal failure Qualifiers: Renal failure chronicity: acute Acute renal failure type: unspecified Qualified Code(s): N17.9 - Acute kidney failure, unspecified (2) Anemia Qualifiers: Anemia type: unspecified type Qualified Code(s): D64.9 - Anemia, unspecified
--- NOTE | 2018-12-14 10:34 | Nephrology Progress Note ---
Date of Encounter: 12/14/18 Time of Encounter: 09:55 - Assessment and Plan (1) Acute kidney injury superimposed on CKD Status: Acute Saw while on HD for his 3rd of initial 3 HD treatments. Awaiting chair time. I also counseled the pt and his and answered all their questions for approx 35 min of which >50% was involved in counseling. Monitoring hypercalcemia of myeloma. If worsens, he may need a bisphosphonate. Please continue to help arrange an outpatient dialysis chair time. I again reviewed his labs, vitals, med list, progress notes (including Dr. Almanzar's clinic notes earlier this year with the pt's GFR was also 6) and imaging. He has a Permacath, which appears to be working well. I will defer his MM treatment to Hem/Onc and provide dialysis in the meantime. I counseled and encouraged him to see full MM care. I will be available tomorrow on Sunday, if needed. Thank you. (2) Anemia Status: Acute Qualifiers: Anemia type: unspecified type Qualified Code(s): D64.9 - Anemia, unspecified (3) History of multiple myeloma Status: Acute (4) Hypercalcemia Status: Acute Subjective Principal diagnosis: Renal failure from MM Interval history: The patient was seen and examined while on dialysis, and he did not affirm having active cramping, or any nausea, vomiting, or other major complaints. He had multiple questions, and I helped answer all of his questions. Objective - Vital Signs Vital signs: Vital Signs Temp Pulse Resp BP Pulse Ox 12/14/18 07:46 98.8 F 99 18 118/78 97 12/14/18 03:57 98.8 F 98 16 122/81 98 12/13/18 23:39 98.1 F 92 16 115/72 96 12/13/18 18:42 98.2 F 92 16 122/77 98 12/13/18 16:44 98.5 F 94 16 124/82 96 12/13/18 13:44 98.2 F 91 18 138/83 98 12/13/18 13:02 98.6 F 18 146/94 12/13/18 12:40 135/88 12/13/18 12:25 140/86 12/13/18 12:10 142/92 12/13/18 11:55 131/92 12/13/18 11:40 146/95 09/27/19 11:25 159/90 12/13/18 11:10 132/82 12/13/18 10:55 133/89 12/13/18 10:40 135/86 Intake and Output 12/13/18 12/14/18 12/14/18 23:59 07:59 15:59 Output Total / 1625 200 / 400 200 / 400 Balance -25 / -1025 -200 / -400 -200 / -400 Output: Urine 200 / 200 Catheter 200 / 200 Other: Weight 77 kg - General Appearance Exam: General appearance: Present: tall and thin, appears started age EENT: Present: ATNC, PERRL, mucous membranes moist Neck: Present: no JVD, no carotid bruit Respiratory: Present: clear Cardiology: Present: no murmurs, no edema, regular rate, regular rhythm, normal S1, normal S2 Dialysis Vascular Access: Venous Catheter (Right sided tunneled HD catheter without exit site erythema and Tegaderm in place) Gastrointestinal: Present: normoactive bowel sounds, no tenderness, no guarding Integumentary: Present: no rash, warm and dry Neurologic: Present: no focal deficit, no asterixis, alert and oriented x3 Musculoskeletal: Present: no deformities, no erythema, no cyanosis Psychiatric: Present: mood/affect appropriate, cooperative - Lab 12/16/18 05:39 12/16/18 05:39 Most recent lab results 12/14/18 06:48 Calcium 10.5 H Consult Discharge Plan - Plan Instructions: Acute Kidney Injury (DC), Anemia (GEN) Additional Instructions: [facility] in [place] on [id number] @ 1100 - arrive 30 minutes for first treatment on Sunday12/18/18 Referrals: Antonio Soriano DO [Primary Care Provider] - (Patient will call for an ap pointment per Office)
[2018-12-15] MEDS: *HR* Heparin 5,000 UNIT/ML VIAL SQ SCH ×4 (02:09→18:54)
[2018-12-15 05:26] LABS: Basophils # 0.1 K/mcL (0.0-0.2); Basophils % 0.9 %; Eosinophils # 0.2 K/mcL (0.0-0.6); Eosinophils % 2.7 %; Hematocrit 26.2 % (37.5-50.1); Hemoglobin 8.9 g/dL (12.9-16.9); Immature Granulocytes % 0.2 % (0-4); Lymphocytes % 31.8 %; Mean Corpuscular Hemoglobin 31.6 pg (28.0-33.3); Mean Corpuscular Volume 92.9 fL (83.0-100.0); Mean Platelet Volume 8.9 fL (9.4-12.4); Monocytes # 0.7 K/mcL (0.0-1.3); Monocytes % 11.7 %; Neutrophils # 3.4 K/mcL (1.6-8.9); Platelet Count 170 K/mcL (140-400); Red Blood Count 2.82 M/mcL (4.19-5.50); Red Cell Distribution Width 12.1 % (11.5-14.5); Segmented Neutrophils % 52.7 %; White Blood Count 6.4 K/mcL (4.3-11.1)
[2018-12-15 05:40] LABS: Calcium 10.8 mg/dL (8.6-10.3)
--- NOTE | 2018-12-15 07:36 | Internal Med Progress Note ---
Hospitalist Progress Note - Encounter Date of Encounter: 12/15/18 Time of Encounter: 07:30 - Subjective Interval History: No acute events overnight - Exam Vitals: Temp Pulse Resp BP Pulse Ox 98.5 F 96 16 130/81 98 12/15/18 07:05 12/15/18 07:05 12/15/18 07:05 12/15/18 07:05 12/15/18 07:05 Exam: GENERAL: NAD, A&O x3, pleasant and conversant at his bedside SKIN: [place] warm dry No skin lesions or rashes, non-jaundiced EYES: EOMI, PERRLA, no sclera icterus HENT: Head atraumatic, no facial asymmetry, frontal and maxillary sinus non- tender, normal hearing, oropharynx and mucosa moist and without any exudates NECK: No cervical lymphadenopathy, trachea midline, thyroid is palpable does not appear enlarged LUNGS: vesicular breath sounds, clear to auscultation, no wheeze, rhonchi, rales or crackles. Non labored respirations HEART: Normal rate and rhythm, no murmurs or rubs ABDOMEN: soft, non-tender, non-distended, bowel sounds x 4 normoactive EXTRMITIES: No LE asymmetry, No LE edema, pedal pulses 1+ and radial pulses 2 + and equal bilaterally NEURO: Speech and comprehension appears intact. PSYCH: Cooperative, non- anxious or irritable, mood seems depressed and affect is flat - Assessment and Plan (1) Renal failure Current Visit: Yes Status: Acute Assessment and Plan: Pt has CKD stage 4 progressing to acute renal failure and possible ESRD. GFR in September was 27 Possibly secondary to complications from incomplete treatment of multiple myelo ma Permacath placed 12/13 and patient was started on dialysis. Patient will undergo another session of dialysis today Awaiting setup of outpatient dialysis chair for discharge planning (2) Anemia Current Visit: Yes Status: Acute Assessment and Plan: Patient with normocytic type anemia likely secondary to mulitple myeloma complicated by kidney disease Monitor hemoglobin. transfuse as indicated (3) History of multiple myeloma Current Visit: Yes Status: Acute Assessment and Plan: Patient stated that he received 4 sessions of Aphoresis and 2 sessions of chemotherapy with the last sessions being October 082018 at [facility]. He stated he is now on homeopathic remedies which he attributes his relief too. He declines further chemotherapy and wants to know the status of his multiple myeloma Oncology consulted and kappa light chains ordered and pending Outpt onc f/u (4) Hypercalcemia Current Visit: Yes Status: Acute Assessment and Plan: Likely secondary to multiple myeloma Monitor daily BMP and treat as indicated. (5) DVT prophylaxis Current Visit: Yes Status: Acute Assessment and Plan: Heparin subcutaneous - Time Spent with Patient Total time spent is greater than 50% in coordination of care (as documented) at patient's floor/unit and/or counseling patient: Internal Medicine: Result - Labs CBC & Chem 7: 12/15/18 05:06 12/15/18 05:06 Labs: Short CBC 12/15/18 Range/Units 05:06 WBC 6.4 (4.3-11.1) K/mcL Hgb 8.9 L (12.9-16.9) g/dL Hct 26.2 L (37.5-50.1) % Plt Count 170 (140-400) K/mcL Neutrophils # 3.4 (1.6-8.9) K/mcL BMP 12/15/18 05:06 Sodium 138 Potassium 4.0 Chloride 103 Carbon Dioxide 32 H BUN 22 H Creatinine 5.51 H Glucose 104 Calcium 10.8 H - ABG Interpretation ABG results: PT/INR, D-dimer PT 12.5 Seconds (9.4-12.1) H 12/12/18 11:05 Consult Discharge Plan - Plan Referrals: Antonio Soriano DO [Primary Care Provider] - (1) Renal failure Qualifiers: Renal failure chronicity: acute Acute renal failure type: unspecified Qualified Code(s): N17.9 - Acute kidney failure, unspecified (2) Anemia Qualifiers: Anemia type: unspecified type Qualified Code(s): D64.9 - Anemia, unspecified
[2018-12-15 12:44] LABS: Total Volume 24 Hour,Urine 0.81 Liters (0.80-1.80)
[2018-12-15 13:26] LABS: Protein/Creatinine Ratio,Urine 21.58 mg/mg (0.00-0.20)
[2018-12-16] MEDS: *HR* Heparin 5,000 UNIT/ML VIAL SQ SCH ×2 (05:16→13:15)
[2018-12-16 05:54] LABS: Basophils % 0.4 %; Eosinophils # 0.2 K/mcL (0.0-0.6); Eosinophils % 3.2 %; Hematocrit 22.6 % (37.5-50.1); Hemoglobin 7.8 g/dL (12.9-16.9); Immature Granulocytes % 0.4 % (0-4); Lymphocytes # 1.4 K/mcL (0.6-4.6); Lymphocytes % 26.4 %; Mean Corpuscular HGB Conc 34.5 g/dL (31.6-35.5); Mean Corpuscular Volume 92.6 fL (83.0-100.0); Mean Platelet Volume 8.9 fL (9.4-12.4); Monocytes # 0.6 K/mcL (0.0-1.3); Monocytes % 11.4 %; Neutrophils # 3.1 K/mcL (1.6-8.9); Platelet Count 140 K/mcL (140-400); Red Blood Count 2.44 M/mcL (4.19-5.50); Red Cell Distribution Width 12.1 % (11.5-14.5); Segmented Neutrophils % 58.2 %; White Blood Count 5.3 K/mcL (4.3-11.1)
[2018-12-16 06:16] LABS: Calcium 10.7 mg/dL (8.6-10.3); Potassium 3.8 mEq/L (3.5-5.1)
[2018-12-16] MEDS ORDERED: 0.9 % Sodium Chloride 250 ML IVC PRN (07:23)
--- NOTE | 2018-12-16 07:36 | Internal Med Progress Note ---
Hospitalist Progress Note - Encounter Date of Encounter: 12/16/18 Time of Encounter: 08:00 - Subjective Interval History: No acute events overnight - Exam Vitals: Temp Pulse Resp BP Pulse Ox 98.1 F 92 88 114/68 98 12/16/18 06:39 12/16/18 06:39 12/16/18 06:39 12/16/18 06:39 12/16/18 06:39 Exam: GENERAL: NAD, A&O x3, pleasant and conversant at his bedside SKIN: [place] warm dry No skin lesions or rashes, non-jaundiced EYES: EOMI, PERRLA, no sclera icterus HENT: Head atraumatic, no facial asymmetry, frontal and maxillary sinus non- tender, normal hearing, oropharynx and mucosa moist and without any exudates NECK: No cervical lymphadenopathy, trachea midline, thyroid is palpable does not appear enlarged LUNGS: vesicular breath sounds, clear to auscultation, no wheeze, rhonchi, rales or crackles. Non labored respirations HEART: Normal rate and rhythm, no murmurs or rubs ABDOMEN: soft, non-tender, non-distended, bowel sounds x 4 normoactive EXTRMITIES: No LE asymmetry, No LE edema, pedal pulses 1+ and radial pulses 2 + and equal bilaterally NEURO: Speech and comprehension appears intact. PSYCH: Cooperative, non- anxious or irritable, mood seems depressed and affect is flat - Assessment and Plan (1) Renal failure Current Visit: Yes Status: Acute Assessment and Plan: Pt has CKD stage 4 progressing to acute renal failure and possible ESRD. GFR in September was 27 Possibly secondary to complications from incomplete treatment of multiple myelo ma Permacath placed 12/13 and patient was started on dialysis. Patient will undergo another session of dialysis today Awaiting setup of outpatient dialysis chair for discharge planning (2) Anemia Current Visit: Yes Status: Acute Assessment and Plan: Patient with normocytic type anemia likely secondary to mulitple myeloma complicated by kidney disease Monitor hemoglobin. transfuse as indicated (3) History of multiple myeloma Current Visit: Yes Status: Acute Assessment and Plan: Patient stated that he received 4 sessions of Aphoresis and 2 sessions of chemotherapy with the last sessions being October 082018 at [facility]. He stated he is now on homeopathic remedies which he attributes his relief too. He declines further chemotherapy and wants to know the status of his multiple myeloma Oncology consulted and kappa light chains ordered and pending Outpt onc f/u (4) Hypercalcemia Current Visit: Yes Status: Acute Assessment and Plan: Likely secondary to multiple myeloma Monitor daily BMP and treat as indicated. (5) DVT prophylaxis Current Visit: Yes Status: Acute Assessment and Plan: Heparin subcutaneous - Time Spent with Patient Total time spent is greater than 50% in coordination of care (as documented) at patient's floor/unit and/or counseling patient: Internal Medicine: Result - Labs CBC & Chem 7: 12/16/18 05:39 12/16/18 05:39 Labs: Short CBC 12/16/18 Range/Units 05:39 WBC 5.3 (4.3-11.1) K/mcL Hgb 7.8 L (12.9-16.9) g/dL Hct 22.6 L (37.5-50.1) % Plt Count 140 (140-400) K/mcL Neutrophils # 3.1 (1.6-8.9) K/mcL BMP 12/16/18 05:39 Sodium 137 Potassium 3.8 Chloride 102 Carbon Dioxide 28 BUN 37 H Creatinine 7.80 H Glucose 96 Calcium 10.7 H - ABG Interpretation ABG results: PT/INR, D-dimer PT 12.5 Seconds (9.4-12.1) H 12/12/18 11:05 Consult Discharge Plan - Plan Referrals: Antonio Soriano DO [Primary Care Provider] - (Patient will call for an appointment per Office) (1) Renal failure Qualifiers: Renal failure chronicity: acute Acute renal failure type: unspecified Qualified Code(s): N17.9 - Acute kidney failure, unspecified (2) Anemia Qualifiers: Anemia type: unspecified type Qualified Code(s): D64.9 - Anemia, unspecified
--- NOTE | 2018-12-16 10:01 | Discharge Summary ---
Orders not resulted at time of discharge: Pending orders 12/12/18 14:17 Stool guiac [Occult Blood,Stool] [BF] Stat 12/15/18 05:06 Serum Free Light Chain [[place]born Lambda Qnt FLC w Ratio] AM 0400 Date of Encounter: 12/16/18 Time of Encounter: 09:00 - Discharge Diagnosis (1) Renal failure Priority: Primary Status: Acute Assessment and Plan: 53 year old male with a history of multiple myeloma that was treated at [facility]. Per patient he received a 4 Sessions of Aphoresis, and 2 sessions of chemotherapy with the last session being October 08. Persisted and now he is now on homeopathic remedies-turmeric garlic vitamin D and vitamin B supplements which has helped with his symptoms. He stated that since his bone marrow biopsy in September he has been having persistent bone pain at the right hip. His [place] [phone] and a doctor while he had workup at [facility] he was told that he has evidence of multiple myeloma and is hips. Patient denies any trauma or fall he also denies any history of prior chronic kidney disease however was noted upon laboratory workup to have elevated serum creatinine was sent to the ED yesterday and evaluated. Patient stated that he was unable to have the HD cath placed as such he went back home but presented today to be evaluated again at ED. His was at the bedside also stated that he is being of late quite easily fatigued, has problem with concentration. Patient complains of persistent nausea and malaise. He reports intermittent episodes of fevers and chills as stated that his urine output has been diminished. He was assessed with as CKD stage 4 progressing to acute renal failure and possible ESRD. GFR in September was 27. This is likely secondary to complications from incomplete treatment of multiple myeloma. Permacath placed 12/13 and patient was started on dialysis. He has undergone dialysis sessions here and will require outpatient dialysis and a chair has been set up. For his multiple myeloma, he was seen by oncology and kappa light chains have bee ordered to assess disease activity. he is reluctant to resume chemotherapy and wants to know if his multiple myeloma is in remission first. He will follow up with oncology as an outpatient. 35 minutes was spent discharging this patient Qualifiers: Renal failure chronicity: acute Acute renal failure type: unspecified Qualified Code(s): N17.9 - Acute kidney failure, unspecified (2) Anemia Priority: Primary Status: Acute Qualifiers: Anemia type: unspecified type Qualified Code(s): D64.9 - Anemia, unspecified (3) History of multiple myeloma Priority: Primary Status: Acute (4) Hypercalcemia Priority: Primary Status: Acute (5) DVT prophylaxis Priority: Primary Status: Acute Hospital course: Mr. Gallardo is a 53 year old male - Time Spent with Patient Total time spent providing and/or coordinating discharge services: - Discharge Medications Prescriptions: No Action No Known Home Drugs 1 each .ROUTE AD each Home Medications: No Known Home Drugs 12/12/18 [History] Allergies/Adverse Reactions: Allergy/AdvReac Type Severity Reaction Status Date / Time No Known Allergies Allergy Verified 12/12/18 22:28 Date of admission: 12/14/18 15:23 Primary care physician: Antonio Soriano Consults: 12/12/18 10:52 Consult to Nephrology [CONS] Stat Consulting Provider: Kidney Maria Teresa/JOANNE/MAGNUS/NORBERTO Reason for Consult: Dialysis Call Completed: Yes 12/12/18 10:54 Consult to Interventional Radiology [CONS] Stat Consulting Provider: Radiology Interventional Cols Reason for Consult: Permcath placement Call Completed: Yes 12/12/18 14:00 Consult to Dialysis [CONS] ONCE 12/12/18 16:25 Consult to Nutrition [CONS] Routine Comment: Consulting Provider: NUTRITION Reason for Dietary Consult: MST Score Consult to Rate Quoting Operator [CONS] Routine Reason for SW Consult: New HD. 12/13/18 07:05 Consult to Oncology [CONS] Routine Consulting Provider: Oncology [facility] Reason for Consult: multiple myeloma refusing treatment with [facility] wants to discuss options and current status, Dr Stewart notified yesterday Call Completed: Yes 12/13/18 08:30 Consult to Dialysis [CONS] ONCE 12/16/18 07:30 Consult to Dialysis [CONS] ONCE - Constitutional Vitals: Temp Pulse Resp BP Pulse Ox 98.1 F 92 88 114/68 98 12/16/18 06:39 12/16/18 06:39 12/16/18 06:39 12/16/18 06:39 12/16/18 06:39 Exam: GENERAL: NAD, A&O x3, pleasant and conversant at his bedside SKIN: [place] warm dry No skin lesions or rashes, non-jaundiced EYES: EOMI, PERRLA, no sclera icterus HENT: Head atraumatic, no facial asymmetry, frontal and maxillary sinus non- tender, normal hearing, oropharynx and mucosa moist and without any exudates NECK: No cervical lymphadenopathy, trachea midline, thyroid is palpable does not appear enlarged LUNGS: vesicular breath sounds, clear to auscultation, no wheeze, rhonchi, rales or crackles. Non labored respirations HEART: Normal rate and rhythm, no murmurs or rubs ABDOMEN: soft, non-tender, non-distended, bowel sounds x 4 normoactive EXTRMITIES: No LE asymmetry, No LE edema, pedal pulses 1+ and radial pulses 2 + and equal bilaterally NEURO: Speech and comprehension appears intact. PSYCH: Cooperative, non- anxious or irritable, mood seems depressed and affect is flat - Patient Status Disposition: Home, Self-Care Condition: Good - Discharge Instructions Follow Up With: Antonio Soriano DO [Primary Care Provider] - (Patient will call for an appointment per Office)
--- NOTE | 2018-12-16 11:16 | Nephrology Progress Note ---
Date of Encounter: 12/16/18 Time of Encounter: 11:14 - Assessment and Plan (1) ESRD (end stage renal disease) Status: Acute Due to multiple myeloma Protein creatinine ratio of 21.58 GFR of 7 Creatinine of 7.8 and BUN of 37 today. TSH 5.050 Vitamin D total 61 -Patient did not receive dialysis yesterday which explains elevation and labs, but is currently receiving a dialysis session today -Set up for HD Sunday through permacatheter in the right chest wall -Permacatheter clean and intact being used currently for hemodialysis -Recommend lipid panel (2) Anemia Status: Acute Iron 92, iron percent saturation of 31, transferrin 211, and ferritin 918 Most likely multifactorial including multiple blood draws during stay at hospital and anemia of chronic disease -Will hold EPO at this time due to patient's history of multiple myeloma -Continue to monitor at dialysis Qualifiers: Anemia type: unspecified type Qualified Code(s): D64.9 - Anemia, unspecified (3) Hypercalcemia Status: Acute The patient most recent calcium of 10.7 -Dialysis today with low calcium bath. -Continue to monitor outpatient (4) History of multiple myeloma Status: Acute Patient being followed by oncology Subjective Principal diagnosis: Renal failure from MM Interval history: Patient resting comfortably in dialysis during interview. Patient states he is feeling fine and symptoms have been improved dramatically since starting dialysis. Discussed with patient and prognosis of kidney failure and encouraged treatment of multiple myeloma. Patient to start dialysis Sunday starting this Sunday after discharge. Patient denies nausea, vomiting, diarrhea, abdominal pain, chest pain, shortness of breath, lower extremity swelling, fever, or chills. Objective - Vital Signs Vital signs: Vital Signs Temp Pulse Resp BP Pulse Ox 12/16/18 06:39 98.1 F 92 88 114/68 98 12/16/18 04:21 98.2 F 84 19 121/72 97 12/16/18 00:02 98.4 F 92 19 124/73 97 12/15/18 19:05 99.1 F 100 19 131/77 97 12/15/18 16:07 98.0 F 95 14 125/75 98 12/15/18 12:18 98.8 F 15 14 122/80 98 - General Appearance General appearance: Present: well-developed, chronically ill (NAD) EENT: Present: mucous membranes moist, hearing intact Neck: Present: no JVD, supple Respiratory: Present: clear Cardiology: Present: no murmurs, no edema, normal S1, normal S2 Gastrointestinal: Present: normoactive bowel sounds, no tenderness, no guarding Integumentary: Present: no rash, warm and dry Neurologic: Present: no focal deficit, alert and oriented x3 Musculoskeletal: Present: no deformities, no cyanosis Psychiatric: Present: mood/affect appropriate, cooperative - Lab 12/16/18 05:39 12/16/18 05:39 Most recent lab results 12/16/18 05:39 Calcium 10.7 H Consult Discharge Plan - Plan Instructions: Acute Kidney Injury (DC), Anemia (GEN) Additional Instructions: [facility] in [place] on [id number] @ 1100 - arrive 30 minutes for first treatment on Sunday12/18/18 Referrals: Antonio Soriano DO [Primary Care Provider] - (Patient will call for an appointment per Office)
[2018-12-16 12:56] VITALS: BP 144/78
[2018-12-16 23:18] LABS: Lambda Qnt Free Light Chains 0.67 mg/dL (0.57-2.63)
[2018-12-18 09:46] LABS: Alpha 2 Globulin (PEP) 0.84 g/dL (0.48-1.05); Beta Globulin (PEP) 0.64 g/dL (0.48-1.10)
[2018-12-18 09:52] LABS: IFE Reflexed IFE Done; Immunoglobulin G 216 mg/dL (768-1632); Immunoglobulin M 5 mg/dL (35-263)
[2018-12-18 09:53] LABS: Immunoglobulin A 15 mg/dL (68-408)
== END 2018-12-16 14:03 | disposition home or self-care (01) | DRG 674 ==
LOC: EMEROOARM 10:38 → 2ANU 10:38
PROVIDERS: ADMIT Pharmacist; ATTEND Pharmacist

== ENCOUNTER 2019-02-03 20:12 | Observation (INO) ==
[2019-02-03 21:21] LABS: Basophils % 0.5 %; Eosinophils # 0.1 K/mcL (0.0-0.6); Eosinophils % 1.8 %; Hematocrit 22.8 % (37.5-50.1); Hemoglobin 8.2 g/dL (12.9-16.9); Immature Granulocytes % 0.7 % (0-4); Lymphocytes # 1.5 K/mcL (0.6-4.6); Lymphocytes % 24.5 %; Mean Corpuscular Hemoglobin 30.9 pg (28.0-33.3); Mean Platelet Volume 8.5 fL (9.4-12.4); Monocytes # 0.9 K/mcL (0.0-1.3); Monocytes % 14.3 %; Neutrophils # 3.5 K/mcL (1.6-8.9); Platelet Count 153 K/mcL (140-400); Red Blood Count 2.65 M/mcL (4.19-5.50); Red Cell Distribution Width 13.8 % (11.5-14.5); Segmented Neutrophils % 58.2 %
[2019-02-03 21:39] LABS: Calcium 7.4 mg/dL (8.6-10.3); Magnesium 2.1 mg/dL (1.6-2.6); Phosphorous 2.8 mg/dL (2.7-4.5); Potassium 3.1 mEq/L (3.5-5.1)
[2019-02-03 22:31] LABS: VBG HCO3 32 mEq/L (21-27); VBG PCO2 49 mmHg (41-51); VBG PH 7.42 pH Units (7.32-7.42); VBG PO2 157 mmHg (25-50)
[2019-02-03] MEDS: Calcium Gluconate 1gm/50mL 1 GM/50 ML BAG IVPB PRN (23:39)
[2019-02-04] MEDS: Calcium Gluconate 1gm/50mL 1 GM/50 ML BAG IVPB PRN (00:41)
[2019-02-04] MEDS ORDERED: Naloxone 0.4 MG/ML INJ IVP PRN (03:01)
[2019-02-04 04:06] LABS: Basophils % 0.3 %; Eosinophils # 0.1 K/mcL (0.0-0.6); Eosinophils % 1.1 %; Hematocrit 25.4 % (37.5-50.1); Hemoglobin 8.7 g/dL (12.9-16.9); Immature Granulocytes % 1.1 % (0-4); Lymphocytes # 0.9 K/mcL (0.6-4.6); Lymphocytes % 13.8 %; Mean Corpuscular HGB Conc 34.3 g/dL (31.6-35.5); Mean Corpuscular Hemoglobin 30.6 pg (28.0-33.3); Mean Corpuscular Volume 89.4 fL (83.0-100.0); Mean Platelet Volume 8.6 fL (9.4-12.4); Monocytes # 0.3 K/mcL (0.0-1.3); Monocytes % 4.2 %; Neutrophils # 5.3 K/mcL (1.6-8.9); Platelet Count 163 K/mcL (140-400); Red Blood Count 2.84 M/mcL (4.19-5.50); Red Cell Distribution Width 13.9 % (11.5-14.5); Segmented Neutrophils % 79.5 %; White Blood Count 6.7 K/mcL (4.3-11.1)
[2019-02-04 04:13] LABS: INR 1.1; Prothrombin Time 12.9 Seconds (9.4-12.1)
[2019-02-04 04:36] LABS: Potassium 3.9 mEq/L (3.5-5.1)
[2019-02-04 04:37] LABS: Albumin 4.3 g/dL (3.5-5.7); Albumin/Globulin Ratio 1.7 (1.1-2.2); Bilirubin,Total 0.4 mg/dL (0.3-1.0); Chol/HDL Ratio 3.8 (0-4.9); Globulin 2.6 g/dL (2.4-3.5); Total Protein 6.9 g/dL (6.4-8.9)
[2019-02-04 07:35] VITALS: BP 113/77
[2019-02-04] MEDS ORDERED: Calcium Gluconate 1gm/50mL 1 GM/50 ML BAG IVPB ONE (10:12)
== END 2019-02-04 15:33 | disposition home or self-care (01) ==
LOC: EMEROOARM 20:12 → 2NENU 20:12 → SUATTDRO 02-04 01:00 → 2NENU 02-04 02:06
PROVIDERS: ADMIT Family Medicine; ATTEND Internal Medicine